=== PATIENT | male | born 1950 | race Caucasian/White ===

== ENCOUNTER 2019-12-01 05:18 | Emergency (ER) | payer SELFPAY ==
[2019-12-01] VITALS (19 sets, daily range): BP systolic 125–163; BP diastolic 85–112; PULSE 70–92; RESP 16–27; TEMP 36.8; O2SAT 96–99; BMI 26.6
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
[2019-12-01] MEDS: morphine 4 mg/mL SDV 1 mL IVP ×2 (05:31→06:36)
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
[2019-12-01] MEDS: ondansetron 2 mg/ML SDV 2 mL 4 MG IVP (05:34)
[2019-12-01 06:46] LABS: Alanine Aminotransferase 34 U/L (0-41); Alkaline Phosphatase 57 IU/L (40-130); Aspartate Amino Transferase 35 U/L (0-40); Blood Urea Nitrogen 15 mg/dL (8-23); Calcium 9.2 mg/dL (8.5-10.5); Carbon Dioxide 24 mmol/L (22-29); Chloride 104 mmol/L (98-107); Globulin 2.5 g/dL (1.3-4.6); Glomerular Filtration Rate 66.8 mL/min (90-130); Glucose 110 mg/dL (65-115); Osmolality Calculated 279 mOsm/kg (285-295); Sodium 136 mmol/L (136-145); Total Bilirubin 0.4 mg/dL (0.15-1.2); Total Protein 6.5 g/dL (6.6-8.7)
[2019-12-01] MEDS: iodixanol 320 mg/mL 100mL Btl IV (06:48)
[2019-12-01 06:58] LABS: Alcohol Level < 10 mg/dL (0-10)
[2019-12-01] MEDS: tetanus-dipt-pertussis 0.5 mL SDV IM (08:00)
[2019-12-01 08:10] LABS: Basophils # 0.1 10^3/uL (0.0-0.1); Basophils % 0.5 %; Eosinophils # 0.1 10^3/uL (0.0-0.8); Eosinophils % 0.6 %; Hematocrit 36.9 % (42.0-52.0); Hemoglobin 11.9 g/dL (11.7-16.6); Lymphocytes # 1.4 10^3/uL (0.8-4.8); Lymphocytes % 13.2 %; Mean Corpuscular HGB Conc 32.2 g/dL (30.0-36.0); Mean Corpuscular Hemoglobin 29.8 pg (28.0-34.0); Mean Corpuscular Volume 92.5 fL (80-94); Mean Platelet Volume 10.2 fL (7.4-10.4); Monocytes # 0.6 10^3/uL (0.2-0.9); Monocytes % 5.9 %; Neutrophils # 8.64 10^3/uL (1.8-7.7); Neutrophils % 79.3 %; Nucleated Red Blood Cells % 0 %; Platelet Count 305 10^3/cmm (130-400); Red Blood Count 3.99 10^6/uL (4.1-5.3); Red Cell Distribution Width 12.1 % (12.1-15.1); White Blood Count 10.9 10^3/uL (4.0-10.0)
[2019-12-01 08:39] LABS: INR 0.92 (0.8-1.2)
== END 2019-12-01 09:29 | disposition home or self-care (01) ==
PROVIDERS: Emergency Medicine; Emergency Provider Family Medicine
DX: M54.2 Cervicalgia (principal); T14.8XXA Other injury of unspecified body region, initial encounter; V89.2XXA Person injured in unspecified motor-vehicle accident, traffic, initial encounter; Z23 Encounter for immunization
CPT/HCPCS: 12345; 36415; 70450; 70486; 71260; 72125; 72128; 72131; 73130; 74177; 80053; 80307; 85025; 85610; 90715; 96374; 96375; 96376; 99283; 99284; J2270; J2405; Q9967